=== PATIENT | male | born 1985 | race Caucasian/White ===

== ENCOUNTER 2019-06-19 11:58 | Emergency (ER) | payer OTHER ==
[2019-06-19] MEDS: ONDANSETRON (ODT) 4 MG TAB ODT (12:56)
== END 2019-06-19 13:38 | disposition home or self-care (01) ==
LOC: FTE 11:58
DX: R11.0 Nausea (principal); Z87.891 Personal history of nicotine dependence
CPT/HCPCS: 99283; Z7502

== ENCOUNTER 2019-07-12 13:39 | Emergency (ER) | payer BC, OTHER ==
[2019-07-12 14:50] LABS: URINE BLOOD (Dip) POC Negative (NEGATIVE); URINE GLUCOSE (Dip) POC Negative (NEGATIVE); URINE KETONES (Dip) POC Negative (NEGATIVE); URINE LEUKOCYTE EST (Dip) POC Negative (NEGATIVE); URINE NITRITE (Dip) POC Negative (NEGATIVE); URINE TOTAL PROTEIN POC Negative (NEGATIVE)
[2019-07-12] MEDS: ONDANSETRON (ODT) 4 MG TAB ODT (14:52)
== END 2019-07-12 15:16 | disposition home or self-care (01) ==
LOC: FTE 13:39
DX: R11.2 Nausea with vomiting, unspecified (principal); F17.210 Nicotine dependence, cigarettes, uncomplicated
CPT/HCPCS: 81003; 99283

== ENCOUNTER 2019-07-18 11:10 | Emergency (ER) | payer BC ==
[2019-07-18 13:18] LABS: ADD MAN DIFF? NO
[2019-07-18 13:30] LABS: BASOPHIL # 0.1 10^3/ul (0.0-0.1); BASOPHILS % 0.9 % (0.0-2.0); EOSINOPHILS # 0.4 10^3/ul (0.0-0.5); EOSINOPHILS % 4.1 % (0.0-7.0); HEMATOCRIT 49.8 % (42.0-52.0); HEMOGLOBIN 16.3 g/dl (14.0-18.0); LYMPHOCYTES # 2.8 10^3/ul (0.8-2.9); LYMPHOCYTES % 31.5 % (15.0-51.0); MEAN CORPUSCULAR HEMOGLOBIN 28.2 pg (29.0-33.0); MEAN CORPUSCULAR HGB CONC 32.7 g/dl (32.0-37.0); MEAN CORPUSCULAR VOLUME 86.2 fl (82.0-101.0); MEAN PLATELET VOLUME 8.8 fl (7.4-10.4); MONOCYTE # 0.6 10^3/ul (0.3-0.9); MONOCYTES % 6.6 % (0.0-11.0); NEUTROPHIL # 5.1 10^3/ul (1.6-7.5); NEUTROPHILS % 56.5 % (39.0-77.0); PLATELET COUNT 285 10^3/UL (140-415); RED BLOOD COUNT 5.78 10^6/ul (4.70-6.10); RED CELL DISTRIBUTION WIDTH 12.4 % (11.5-14.5)
[2019-07-18 13:31] LABS: ADD UMIC NO; UR ASCORBIC ACID NEGATIVE (NEGATIVE); UR BILIRUBIN (Dip) NEGATIVE (NEGATIVE); UR BLOOD (Dip) NEGATIVE (NEGATIVE); UR CLARITY CLEAR (CLEAR); UR COLOR YELLOW (YELLOW); UR GLUCOSE (Dip) NEGATIVE (NEGATIVE); UR KETONES (Dip) NEGATIVE (NEGATIVE); UR LEUKOCYTE ESTERASE (Dip) NEGATIVE Leu/ul (NEGATIVE); UR NITRITE (Dip) NEGATIVE (NEGATIVE); UR SPECIFIC GRAVITY (Dip) 1.009 (1.003-1.030); UR TOTAL PROTEIN (Dip) NEGATIVE (NEGATIVE); UR UROBILINOGEN (Dip) NEGATIVE (NEGATIVE)
[2019-07-18] MEDS: LORAZEPAM 1 MG TAB PO (13:34)
[2019-07-18] MEDS: KETOROLAC 30 MG INJ IV (13:34)
[2019-07-18] MEDS: ONDANSETRON 4 MG INJ IV (13:34)
[2019-07-18] MEDS: SOD CHLORIDE 0.9% 1,000 ML IV (13:34)
[2019-07-18 13:51] LABS: HEMOGLOBIN A1C 5.4 % (0-5.9)
[2019-07-18 14:08] LABS: ALANINE AMINOTRANSFERASE 32 IU/L (13-69); ALBUMIN 4.4 g/dl (3.3-4.9); ALBUMIN/GLOBULIN RATIO 1.41; ALKALINE PHOSPHATASE 100 IU/L (42-121); ANION GAP 8 (5-13); ASPARTATE AMINO TRANSFERASE 22 IU/L (15-46); BILIRUBIN,INDIRECT 0.6 mg/dl (0-1.1); BILIRUBIN,TOTAL 0.6 mg/dl (0.2-1.3); BLOOD UREA NITROGEN 6 mg/dl (7-20); CALCIUM 9.9 mg/dl (8.4-10.2); CARBON DIOXIDE 28 mmol/L (21-31); CHLORIDE 104 mmol/L (97-110); CHOL/HDL RATIO 4.1 RATIO; CHOLESTEROL 219 mg/dl (100-200); CREATININE 0.76 mg/dl (0.61-1.24); Estimated GFR > 60 mL/min (>60); GLUCOSE 91 mg/dl (70-220); HDL CHOLESTEROL 53 mg/dl (28-63); LDL CHOLESTEROL,CALCULATED 145 mg/dl; LIPASE 271 U/L (23-300); MAGNESIUM 1.9 mg/dl (1.7-2.5); SODIUM 140 mmol/L (135-144); TOTAL PROTEIN 7.5 g/dl (6.1-8.1); TRIGLYCERIDES 105 mg/dl (0-149); URIC ACID 6.6 mg/dl (3.1-7.9)
[2019-07-18 14:24] LABS: FREE THYROXINE INDEX (Calc) 2.75 ug/ml (0.65-3.89); T4 (THYROXINE) 8.1 ug/dl (5.5-11.0)
[2019-07-20 14:27] LABS: ANA SCREEN NEGATIVE (NEGATIVE)
[2019-07-20 17:41] LABS: FREE TESTOSTERONE 51.2 pg/mL (35.0-155.0); TESTOSTERONE, TOTAL 237 ng/dL (250-1100)
== END 2019-07-18 15:49 | disposition home or self-care (01) ==
LOC: FTE 11:10
DX: Z01.812 Encounter for preprocedural laboratory examination (principal); F17.210 Nicotine dependence, cigarettes, uncomplicated
CPT/HCPCS: 36415; 80053; 80061; 81003; 82306; 82607; 82728; 83036; 83690; 83735; 84403; 84436; 84479; 84560; 85025; 85651; 86038; 86900; 86901; 99282

== ENCOUNTER → 2019-07-24 | Emergency (ER) | payer BC | END | disposition home or self-care (01) | LOC: FTE 12:10 | DX: E29.1 Testicular hypofunction (principal); Z87.891 Personal history of nicotine dependence | CPT/HCPCS: 99282; Z7502 ==

== ENCOUNTER 2019-07-28 21:24 | Emergency (ER) | payer BC ==
[2019-07-28] MEDS ORDERED: LIDOCAINE/MYLANTA 40 ML BTL PO (23:30)
[2019-07-28] MEDS ORDERED: LORAZEPAM 1 MG TAB PO (23:30)
== END 2019-07-28 23:49 | disposition home or self-care (01) ==
LOC: FTE 23:49
DX: R10.13 Epigastric pain (principal); Z87.891 Personal history of nicotine dependence
CPT/HCPCS: 99282; Z7502